=== PATIENT | female | born 1965 | race African-American/Black ===

== ENCOUNTER 2016-09-14 17:30 | Emergency (ER) | payer OTHER ==
[~2016-09-14] VITALS: Ht 172.7 cm; Wt 81.6 kg
[2016-09-14 18:08] LABS: BASOPHIL % 0.5 % (0-2); PLATELET COUNT 188 x10^3mcL (130-400); RED CELL DISTRIBUTION WIDTH 14.2 % (11.5-14.5)
[2016-09-14 18:18] LABS: CALCIUM 9.8 mg/dL (8.5-10.1); CARBON DIOXIDE 28.9 mmol/L (21-32); CHLORIDE SERUM 101 mmol/L (98-107); CREATININE SERUM 0.8 mg/dL (0.6-1.0); GFR1 > 60 mL/min; GLUCOSE SERUM 97 mg/dL (74-106); POTASSIUM SERUM 4.2 mmol/L (3.5-5.1); SODIUM SERUM 138 mmol/L (136-145)
[2016-09-14 18:22] LABS: ALBUMIN 3.9 g/dL (3.4-5.0); ALKALINE PHOSPHATASE 106 U/L (46-116); ALT/SGPT 20 U/L (14-59); AMYLASE 74 U/L (25-115); AST/SGOT 22 U/L (15-37); BILIRUBIN TOTAL 0.43 mg/dL (0.20-1.00); CHOLESTEROL 176 mg/dL (<200); LIPASE 130 IU/L (73-393)
[2016-09-14 18:23] LABS: HDL CHOLESTEROL 74 mg/dL (40-60)
[2016-09-14 19:10] LABS: UA SPECIFIC GRAVITY 1.015 (1.005-1.035); microscopic required? YES; urine erythrocyte TRACE (NEGATIVE)
[2016-09-14 19:12] LABS: AMPHETAMINE QUAL UR NONE DETECTED (NEG <=1000)
[2016-09-14 20:07] VITALS: BP 99/67
== END 2016-09-14 20:07 | disposition short-term general hospital (02) ==
LOC: ED 17:30
PROVIDERS: Emergency Medicine
DX: R07.89 Other chest pain (principal); I10 Essential (primary) hypertension; E78.00 Pure hypercholesterolemia, unspecified; E66.9 Obesity, unspecified; Z88.5 Allergy status to narcotic agent; Z88.8 Allergy status to other drugs, medicaments and biological substances
CPT/HCPCS: 36415; 83880; 85378; Q0092